=== PATIENT | male | born 1970 | race Caucasian/White ===

== ENCOUNTER 2017-03-09 18:53 | Emergency (ER) | payer OTHER ==
[~2017-03-09] VITALS: Ht 175.3 cm; Wt 81.6 kg
[2017-03-09] MEDS ORDERED: WARF5TAB77 PO (19:13)
[2017-03-09] MEDS ORDERED: IV D5/ 0.9% NACL 1,000 ML IV ONE (19:18)
[2017-03-09] MEDS ORDERED: THIAMINE HCL 200 MG/2 ML VIAL IV ONE (19:30)
[2017-03-09 19:52] LABS: BASOPHILS # (AUTO) 0.1 K/uL (0.0-8.0); EOSINOPHILS # (AUTO) 0.2 K/uL (0.0-0.7); EOSINOPHILS % (AUTO) 2.7 % (0.0-7.0); HEMATOCRIT 43.6 % (40-50); HEMOGLOBIN 15.3 G/DL (14.0-18.0); MEAN CORPUSCULAR HEMOGLOBIN 34.8 UUG (27.0-31.0); MEAN CORPUSCULAR HGB CONC 35 g/dL (32.0-37.0); MEAN CORPUSCULAR VOLUME 99.1 FL (82.0-92.0); MONOCYTES # (AUTO) 0.7 K/UL (0.1-1.30); MONOCYTES % (AUTO) 9.6 % (0.0-11.0); NEUTROPHILS # (AUTO) 4.8 K/UL (1.8-8.9); NEUTROPHILS % (AUTO) 60.7 % (38.5-71.5); PLATELET COUNT (AUTO) 239 K/UL (150-450); WHITE BLOOD COUNT (AUTO) 7.8 K/UL (4.0-11.2)
[2017-03-09 19:55] LABS: CARBON DIOXIDE 27 mmol/L (21-32); CHLORIDE 101 mmol/L (98-107); CREATININE 0.7 mg/dL (0.6-1.3); GLUCOSE 83 mg/dL (74-106); POTASSIUM 3.4 mmol/L (3.5-5.1); UREA NITROGEN, BLOOD 11 mg/dL (7-18)
[2017-03-09 20:09] LABS: THYROID STIMULATING HORMONE 1.364 mIU/mL (0.358-3.740)
[2017-03-09 20:11] LABS: ACETAMINOPHEN < 2.0 ug/mL (10-30); ALANINE AMINOTRANSFERASE 23 U/L (16-63); ALKALINE PHOSPHATASE 116 U/L (50-136); ASPARTATE AMINOTRANSFERASE 19 U/L (15-37); BILIRUBIN,DIRECT 0.1 mg/dL (0.0-0.2); BILIRUBIN,TOTAL 0.2 mg/dL (0.2-1.0); TOTAL PROTEIN, SERUM 7.6 g/dL (6.4-8.2)
[2017-03-09 20:14] LABS: ETHANOL 268 MG/DL (0-0)
[2017-03-09] MEDS ORDERED: THIAMINE HCL 200 MG/2 ML VIAL ONE (20:20)
--- NOTE | 2017-03-09 20:33 | NUR ---
Pt timo, pt himself called 911. Pt sts " I want to kill myself. " Sts his plan is to "run out in traffic". Pt sts he has previous attempts approx 8 mos ago. Pt admits to heavy etoh today. Pt changed into gown, belongings removed and secured. Pt seen by Dr. De La Cruz. Labs drawn and sent. IV established, fluid infusing freely to gravity. Pt resting in position of comfort for self. At this time pt is calm and cooperative. Security at bedside.
--- NOTE | 2017-03-09 22:30 | NUR ---
Pt resting in position of comfort for self with eyes closed. Resp even and unlabored. No obvious signs of distress at this time. Security remains at bedside.
--- NOTE | 2017-03-10 00:19 | NUR ---
Pt resting in position of comfort for self with eyes closed, resp even and unlabored. No obvious signs of distress at this time. Pt calm and cooperative. Security remains at bedside.
[2017-03-10 01:49] LABS: *BILIRUBIN,URIN NEGATIVE (NEGATIVE); *BLOOD, URINE NEGATIVE (NEGATIVE); *CLARITY,URINE CLEAR (CLEAR); *COLOR,URINE YELLOW (YELLOW); *KETONES,URINE NEGATIVE (NEGATIVE); *PROTEIN,URINE NEGATIVE (NEGATIVE); *UROBILINOGEN,URINE 0.2 E.U./dl (NORMAL); LEUKOCYTE ESTERASE ,URINE NEGATIVE (NEGATIVE); NITRITE, URINE NEGATIVE (NEGATIVE); UGLUCOSE TRACE (NEGATIVE)
[2017-03-10 01:57] LABS: *AMPHETAMINE, URINE NEGATIVE (NEGATIVE); *BARBITURATE, URINE NEGATIVE (NEGATIVE); *CANNABINOID, URINE NEGATIVE (NEGATIVE); *COCCAINE, URINE NEGATIVE (NEGATIVE); *OPIATE, URINE NEGATIVE (NEGATIVE); *PHENCYCLIDINE SCREEN,URINE NEGATIVE (NEGATIVE)
[2017-03-10] MEDS ORDERED: LORAZEPAM 0.5 MG TABLET PO ONE ×2 (02:00→12:15)
[2017-03-10 02:02] LABS: BACTERIA,URINE FEW /HPF (NONE SEEN); RBC,URINE NONE SEEN /HPF (0-3); SQUAMOUS EPITHELIAL CELL,UR FEW /HPF (NONE SEEN); WBC,URINE 0-3 /HPF (0-3)
--- NOTE | 2017-03-10 02:20 | NUR ---
Pt requested medication for possible alcohol withdrawal. Sts he has tremors and sz if his alcohol level gets " too low". Pt medicated with ativan, will monitor for effects of medication. Pt NSR on monitor, no tremor noted to extremities. Pt removed his IV, catheter intact, no problems noted to site.
[2017-03-10] MEDS ORDERED: LORAZEPAM 1 MG TABLET ONE ×2 (02:22→08:51)
--- NOTE | 2017-03-10 04:02 | NUR ---
Pt remains calm and cooperative, resting in position of comfort for self. No obvious signs of distress at this time. Security remains at bedside.
--- NOTE | 2017-03-10 05:16 | NUR ---
Repeat BA drawn by lab
--- NOTE | 2017-03-10 06:02 | NUR ---
CONTACTED [facility] MATIAS FOR PSYCH EVAL... STATES WILL BE HERE IN 1-06/16 HOURS....
--- NOTE | 2017-03-10 06:42 | NUR ---
Pt awake, alert and oriented. Pt calm and cooperative, awaiting PET eval. Pt c/o severe right shoulder pain. MD notified, awaiting further orders.
--- NOTE | 2017-03-10 06:53 | NUR ---
Pt medicated for discomfort, will monitor for effects of medication.
[2017-03-10] MEDS ORDERED: IBUPROFEN 800 MG TABLET PO ONE ×2 (07:00→08:15)
[2017-03-10] MEDS ORDERED: IBUPROFEN 800 MG TABLET ONE ×2 (07:04→08:40)
--- NOTE | 2017-03-10 07:05 | NUR ---
Hands off report received from night shift supervisor, pt sleeping with no s/s of acute distress noted at this time. Pend psych eval.
--- NOTE | 2017-03-10 07:06 | NUR ---
Report given to EDDIE Chauhan. I relinquish care of pt at this time.
--- NOTE | 2017-03-10 08:11 | NUR ---
Haseeb Awan at bedside for psych eval.
--- NOTE | 2017-03-10 08:40 | NUR ---
Per Haseeb Awan pt will not be placed on a hold and will be a voluntary admission. Pt medicated with Ativan 2mg po as per pt's request and Dr. Penaloza verbal order.
--- NOTE | 2017-03-10 08:51 | NUR ---
Per Haseeb Awan pt may be d/c from ER to [facility] (Address: [address] [place] [id number]) via taxi.
--- NOTE | 2017-03-10 08:56 | NUR ---
Patient discharged in stable conditon. Written and verbal after care instructions given. Patient verbalizes understanding of instructions. [employer] called for transport, eta 15 mins.
--- NOTE | 2017-03-10 09:10 | NUR ---
Pt ambulated out of ER with steady gait.
== END 2017-03-10 09:13 | disposition home or self-care (01) ==
LOC: ER 18:56
DX: F10.129 Alcohol abuse with intoxication, unspecified (principal); F32.9 Major depressive disorder, single episode, unspecified; R45.851 Suicidal ideations; Z79.01 Long term (current) use of anticoagulants; Z59.0 Homelessness; F10.10 Alcohol abuse, uncomplicated
CPT/HCPCS: 36415; 80307; 84443; 85025; A4663; G0480; G0480-TC; J3411; J7042